=== PATIENT | male | born 1940 | race Caucasian/White ===

== ENCOUNTER → 2018-01-15 | Outpatient (CLI) | payer OTHER ==
[~2018-01-15] MED LIST: ADULT LOW DOSE81 MG; ADVAIR 100-501 EACH; APAP500 PO; ATORVASTATIN CA40 MG PO; CALCIUM 600 +1 EAC1 PO; CIPRO250 M1 PO; DILTIAZEM 24HR180 MG; FLAGYL500 MG PO; LISINOPRIL10 MG PO; LISINOPRIL5 MG; MULTIVITAMINS PO; NAPROSYN500 MG PO; NITROGLYCERIN0.4 MG SUBLING; NORCO 5-325 TA1 EACH PO; OMEGA-3100 MG; PERCOCET 10-321 EACH PO; PLAVIX 300 MG300 M1 PO; PLAVIX 75 MG TA75 M1 PO; PLAVIX 75 MG TA75 MG; SIMVASTATIN80 MG PO; TAMSULOSIN HCL0.4 M1 PER TUBE
--- NOTE | 2018-01-26 10:03 | ONC ---
[address] [address] RADIATION ONCOLOGY NOTE Name: MIKE BLANCO Room: [facility]#: [id number] Admission: 01/15/18 Attend Phys: Reno Quintero MD Discharge: Date of : 44 Report #: [id number] THIS REPORT FOR: //name// CC: Reno Ruth DATE OF SERVICE: 01/15/2018 REFERRING PHYSICIANS: Include Dr. Greg King and Dr. Greg Ruth. [facility] phone is [phone]. PRIMARY SITE AND HISTOPATHOLOGY: The patient received radiation therapy for a stage I adenocarcinoma of the prostate. The [place] score was 3+3 equals 6, PSA prior to treatment was 5.2. He completed radiation treatments on 01/15/2012. INTERVAL NOTE: The patient felt like he was emptying his bladder well. The patient rarely has nocturia. He usually wakes up around 7 a.m. to go the bathroom. MEDICATIONS: Include lisinopril, Plavix and a multivitamin and also Nitrostat as needed. SOCIAL HISTORY: The patient is retired. He is . Cigarettes: he does not smoke. REVIEW OF SYSTEMS: GENITOURINARY: He has rare nocturia and he empties his bladder well. GASTROINTESTINAL: He has 1 bowel movement a day and he feels like he has a good appetite. PHYSICAL EXAMINATION: VITAL SIGNS: The patient was 162.8 pounds on 01/15/2018 and 161.8 pounds on 01/11/2017. On 01/15/2018, blood pressure was 129/72, pulse 74, respirations 16, oxygen saturation 95%. BACK: Had no tenderness to palpation. HEART: Had a regular rate and rhythm without murmur. LUNGS: were clear to auscultation. RECTAL: The prostate was not enlarged. There were no palpable nodules. The patient was guaiac negative using [employer] Hemoccult cards from lot number [id number] that in 09/2019 using developer from lot [id number] that expires in 04/2020. LABORATORY DATA: My nurse got a verbal on the PSA from 12/2017 that was 0.4 [place] [address] RADIATION ONCOLOGY NOTE Name: MIKE BLANCO Room: [facility]#: [id number] Admission: 01/15/18 Attend Phys: Reno Quintero MD Discharge: Date of : 44 Report #: [id number] the previous PSA was 0.47 on 01/03/2017. ASSESSMENT AND PLAN: 1. History of prostate cancer- There is no evidence of prostate cancer at this time. The patient was given a requisition for a PSA in about 1 year and the patient was asked to schedule a follow up appointment to see me afterwards. 2. Hypertension- The patient takes lisinopril and that is managed by his referring physicians. 3. Cardiovascular disease- The patient takes Nitrostat and that is managed by his referring physicians. Thank you for allowing me to participate in the care of this patient. <ELECTRONICALLY SIGNED> By: Reno Quintero MD 01/26/18 1003 1018 1500Reno Quintero MD /nt
== END ==
LOC: M.RTH 04:28
DX: I11.9 Hypertensive heart disease without heart failure (principal); Z85.46 Personal history of malignant neoplasm of prostate

== ENCOUNTER → 2019-01-30 | Outpatient (CLI) | payer OTHER ==
--- NOTE | 2019-02-01 23:05 | ONC ---
[address] [address] RADIATION ONCOLOGY NOTE Name: MIKE BLANCO Room: [facility]#: [id number] Admission: 01/30/19 Attend Phys: Reno Quintero MD Discharge: Date of : 44 Report #: [id number] THIS REPORT FOR: //name// CC: Reno Ruth DATE OF SERVICE: 01/30/2019 RADIATION ONCOLOGY FOLLOWUP NOTE REFERRING PHYSICIANS: Dr. Greg King and also Dr. Greg Ruth. [facility] phone is [phone]. PRIMARY SITE AND HISTOPATHOLOGY: The patient received radiation therapy for a stage I adenocarcinoma of the prostate, the [place] score was 3+3 equals 6, the PSA prior to the treatment was 5.2 and he completed radiation treatments on 01/15/2012. INTERVAL NOTE: The patient felt like he was emptying his bladder well. The patient rarely has nocturia. He usually wakes up around 7 and he wakes up in the morning to go to the bathroom. MEDICATIONS: Include lisinopril, Plavix, Nitrostat as needed. SOCIAL HISTORY: The patient is retired. He is . Cigarettes, he does not smoke cigarettes. REVIEW OF SYSTEMS: GENITOURINARY: He rarely has nocturia. He empties his bladder well. GASTROINTESTINAL: He has about 1 bowel movement a day and he feels like he has a good appetite. PHYSICAL EXAMINATION: VITAL SIGNS: The patient was 163 pounds on 01/30/2019. He was 162.8 pounds on 01/15/2018. On 01/30/2019, blood pressure was 143/75, pulse 60, respirations 16, oxygen saturation 98%. BACK: Had no tenderness to palpation. HEART: Had a regular rate and rhythm without murmur. LUNGS: were clear to auscultation. RECTAL: The prostate was not enlarged. There were no palpable nodules and the patient was guaiac negative using [employer] Hemoccult cards with lot #[id number], expires in 09/2019, using [employer] Hemoccult developer from lot #[id number] that expires in 04/2020. [place] [address] RADIATION ONCOLOGY NOTE Name: MIKE BLANCO Room: [facility]#: [id number] Admission: 01/30/19 Attend Phys: Reno Quintero MD Discharge: Date of : 42 Report #: [id number] LABORATORY DATA: From 12/25/2018, PSA was 0.45. His PSA was 0.4 on 12/17/2017. ASSESSMENT AND PLAN: 1. History of prostate cancer- There is no evidence of prostate cancer at this time. Lab work was ordered in about a year and the patient was asked to schedule a followup appointment to see me afterwards. 2. Hypertension- The patient takes lisinopril and that is managed by his referring physician. 3. Cardiovascular disease- The patient takes Nitrostat and that is managed by his referring physicians. Thank you for allowing me to participate in the care of this patient. <ELECTRONICALLY SIGNED> By: Reno Quintero MD 02/01/19 2305 1122 [id number] Quintero MD /nt
== END ==
LOC: M.RTH 01-14 09:30
DX: Z08 Encounter for follow-up examination after completed treatment for malignant neoplasm (principal); I10 Essential (primary) hypertension; Z85.46 Personal history of malignant neoplasm of prostate; Z79.899 Other long term (current) drug therapy

== ENCOUNTER → 2020-01-29 | Outpatient (CLI) | payer OTHER ==
--- NOTE | ~2020-01-29 | ONC ---
[address] [address] RADIATION ONCOLOGY NOTE Name: MIKE BLANCO Room: [facility]#: [id number] Admission: 01/29/20 Attend Phys: Reno Quintero MD Discharge: Date of : 44 Report #: [id number] THIS REPORT FOR: //name// CC: Reno King DATE OF SERVICE: 01/29/2020 RADIATION ONCOLOGY FOLLOWUP NOTE [facility] phone is [phone]. REFERRING PHYSICIANS: Dr. Greg King and also Dr. Greg Ruth. PRIMARY SITE AND HISTOPATHOLOGY: The patient received radiation therapy for stage 1 adenocarcinoma of the prostate. Vanessa score was 3+3 equals 6 and the PSA prior to treatment was 5.2 and he completed radiation treatments on 01/15/2012. INTERVAL NOTE: The patient felt he was emptying his bladder well. He has nocturia about 1-2 times a night. He has one bowel movement a day. MEDICATIONS: Include lisinopril, Plavix, and Nitrostat as needed. SOCIAL HISTORY: The patient is retired. He is . Cigarettes, he does not smoke cigarettes. REVIEW OF SYSTEMS: GENITOURINARY: He rarely has nocturia. He empties his bladder well. GASTROINTESTINAL: He has about one bowel movement a day and he feels like he has a good appetite. PHYSICAL EXAMINATION: VITAL SIGNS: The patient was 160 pounds on 01/29/2020 and 163 pounds on 01/30/2019 and on 01/29/2020 blood pressures was 133/70, pulse 69, respirations 18, temperature 97.8 degrees Fahrenheit, oxygen saturation was 95%. BACK: Had no tenderness to palpation. HEART: Had a regular rate and rhythm without murmur. LUNGS: Clear to auscultation. RECTAL: The prostate was not enlarged. There were no palpable nodules and the patient was guaiac negative and that was using [employer] Hemoccult cards from lot #[id number] that expires in 03/2022, using [employer] Hemoccult developer from lot #[id number] that expires in 05/2022. Again, the prostate was not enlarged and there were no palpable nodules. LABORATORY DATA: The patient's PSA was 0.5 on ____ 01/26/2020 [place] [address] RADIATION ONCOLOGY NOTE Name: MIKE BLANCO Room: [facility]#: [id number] Admission: 01/29/20 Attend Phys: Reno Quintero MD Discharge: Date of : 42 Report #: [id number] 0.45 on 12/25/2018. ASSESSMENT AND PLAN: 1. History of prostate cancer. There is no evidence of prostate cancer at this time. PSA was ordered in about 1 year and the patient was asked to schedule a followup appointment to see me afterwards. 2. Hypertension. The patient takes lisinopril and that is managed by his referring physicians. 3. Cardiovascular disease. The patient takes Nitrostat and that is managed by his referring physicians. Thank you for allowing me to participate in the care of this patient. By: [id number] Quintero MD /nt
== END ==
LOC: M.RTH 09:45
PROVIDERS: ATTEND Radiology Radiation Oncology
DX: I10 Essential (primary) hypertension (principal); I25.10 Atherosclerotic heart disease of native coronary artery without angina pectoris; Z85.46 Personal history of malignant neoplasm of prostate

== ENCOUNTER 2020-03-07 15:00 | Observation (INO) | payer OTHER ==
[~2020-03-07] VITALS: Ht 167.6 cm; Wt 72.7 kg
--- NOTE | ~2020-03-07 | EMS ---
[place] [address] EMS Patient Care Report Name: MIKE BLANCO [id number] Admission: 03/07/20 Attend Phys: Discharge: Date of : 42 Report #: [id number] THIS REPORT FOR: //name// Report Transmitted: 03/07/2020 14:57 EMS Care Summary [facility]ident [id number] @ 03/07/2020 13:49 Incident Location [address] [place] [address] Patient SANDIE BLANCO Male, 79 Years 1940 Patient Address [address] [place] [address] Patient History Hypertension (HTN),Cardiac - Stent, Patient Allergies No known allergies, Patient Medications Lisinopril, Nitroglycerin, Aspirin, Atorvastatin, Allopurinol, Clopidogrel, Chief Complaint Steady Back Pain Disposition Transported No Lights/[place] [facility] Reason Chest Pain (Non-Traumatic) Transported To [facility] Narrative Dispatched: Med 1 was toned for a male with a possible heart attack. Med 1 responded emergent; lights and sirens. Chief Complaint/Condition: The patient was found seated in a chair with no [facility] [address] [place] [address] EMS Patient Care Report Name: MIKE BLANCO [facility] [id number] Admission: 03/07/20 Attend Phys: Discharge: Date of : 42 Report #: [id number] apparent distress. He denied any chest pain but reported a ache/pain in between his shoulder blades that resembled his last heart attack. History of Present Illness/Injury: The patient stated that the pain woke him up between 3am and 4am this morning. He took 3 nitro pills and called 911. The crew arrived and performed an assessment. The patient refused transport at that time and called his physician for an appointment. The pain returned and so he took more nitro tablets and aspirin. 911 was called due to the persistent nature of the pain. The patient reported that the pain had dissipated by the time EMS arrived and he had no complaints. He still wanted to be seen by a physician. Assessment: The patient was a male in his 70's, A/Ox4, GCS 15. Airway patent, breathing clear, equal, and regular. CMS present with strong radial pulses. Skin pink, warm, and dry. See section for further. Reason for Ambulance: The patient has a cardiac history and was experiencing similar discomfort like his last heart attack. He requested transport to [facility] for further assessment. Treatment: EKG/12 lead showing sinus rhythm. IV therapy performed and 20ga placed in left AC. See section for further. Summary: Med 1 arrived on scene and found the patient sitting in a chair with no apparent distress. Assessment performed and vitals obtained/ EKG. Findings conveyed to patient. He requested transport to[facility] for further assessment. Pt assisted to the stretcher and secured. His status monitored throughout transport. He reported no pain or complaints while in EMS contact. Report called to facility with no further orders. The patient was delivered to ED 16 upon arrival and he self transferred to bed. Report given to staff. Signatures obtained and paperwork gathered. Med 1 cleared the facility and returned. Initial Vitals @14:10P: 62,R: 16,BP: 92/58,GCS: 15,Revised Trauma: 12, @14:32P: 60,R: 16,BP: 105/73,GCS: 15,SpO2: 96,Revised Trauma: 12, @14:47P: 57,R: 18,BP: 104/71,GCS: 15,SpO2: 97,Revised Trauma: 12, @14:06P: 65,R: 16,GCS: 15, @14:22P: 63,R: 18,BP: 102/69,GCS: 15,SpO2: 98,Revised Trauma: 12, @14:27P: 59,R: 18,GCS: 15,SpO2: 95, @14:08P: 62,R: 18,GCS: 15, Assessments @14:30MENTAL:Person Oriented,Time Oriented,Event Oriented,Place Oriented,SKIN:HEENT:LUNG SOUNDS:ABDOMEN:PELVIS//GI:EXTREMITIES:PULSE:Radial: 2+ Normal,NEURO:@14:01MENTAL:Time Oriented,Place Oriented,Person Oriented,[place] [address] EMS Patient Care Report Name: MIKE BLANCO [id number] Admission: 03/07/20 Attend Phys: Discharge: Date of : 42 Report #: [id number] Oriented,SKIN:HEENT:LUNG SOUNDS:ABDOMEN:PELVIS//GI:EXTREMITIES:PULSE:Radial: 2+ Normal,NEURO: Impression Pain (Non-Traumatic) Procedures @PTAAspirin - 160 Milligrams (mg) - OralResponse: Improved@14:34Saline Lock 10cc (20 ga) Site: Antecubital-LeftResponse: UnchangedSucceeded@14:01ALS AssessmentResponse: UnchangedSucceeded@14:0612-Lead ECGResponse: UnchangedSucceeded@14:0812-Lead ECGResponse: UnchangedSucceeded Timeline [employer] REPRESENTATIVE,Aspirin - 160 Milligrams (mg) - Oral,Response: Improved 13:47,Call Received 13:49,Dispatched 13:49,En Route 14:00,On Scene 14:01,At Patient 14:01,ALS Assessment,Response: UnchangedSucceeded, 14:06,12-Lead ECG,Response: UnchangedSucceeded, 14:06,BP: / M,PULSE: 65,RR: 16 R,SPO2: Ox,ETCO2: ,BG: ,PAIN: ,GCS: 15, 14:08,12-Lead ECG,Response: UnchangedSucceeded, 14:08,BP: / M,PULSE: 62,RR: 18 R,SPO2: Ox,ETCO2: ,BG: ,PAIN: ,GCS: 15, 14:10,BP: 92/58 M,PULSE: 62,RR: 16 R,SPO2: Ox,ETCO2: ,BG: ,PAIN: ,GCS: 15, 14:17,Depart Scene 14:22,BP: 102/69 M,PULSE: 63,RR: 18 R,SPO2: 98 Ox,ETCO2: ,BG: ,PAIN: ,GCS: 15, 14:27,BP: / M,PULSE: 59,RR: 18 R,SPO2: 95 Ox,ETCO2: ,BG: ,PAIN: ,GCS: 15, 14:32,BP: 105/73 M,PULSE: 60,RR: 16 R,SPO2: 96 Ox,ETCO2: ,BG: ,PAIN: ,GCS: 15, 14:34,Saline Lock 10cc 20 ga Site: Antecubital-Left,Response: UnchangedSucceeded, 14:47,BP: 104/71 M,PULSE: 57,RR: 18 R,SPO2: 97 Ox,ETCO2: ,BG: ,PAIN: ,GCS: 15, 14:57,At Destination 15:38,Call Closed Disclaimer v1.1 Copyright 2020 [employer] This EMS Care Summary contains data elements from the applicable legal record (which may be displayed differently). It is designed to provide pertinent information for the following purposes: continuity of care, clinical quality, and state data reporting. The complete legal record is available to ED staff and administrators of the receiving hospital in [employer] Patient Tracker. All data is provided "as is."
[~2020-03-07 15:00] MED LIST changes: -APAP500 PO; +TYLENOL EXTRA500 MG PO
[2020-03-07 15:01] VITALS: BP 125/62
[2020-03-07 15:27] LABS: ABSOLUTE LYMPHOCYTES 1.4 thou/uL (0.8-5.3); ABSOLUTE MONOCYTES 0.6 thou/uL (0.0-1.2); ABSOLUTE NEUTROPHILS 1.3 thou/uL (1.6-8.1); BASOPHILS 1.1 %; EOSINOPHILS 1.4 %; HEMATOCRIT 33.9 % (42.0-52.0); HEMOGLOBIN 11.9 gm/dL (14.0-18.0); LYMPHOCYTES 40.8 %; MCH 30.5 pg (26.0-34.0); MCHC 35.1 g/dL (28.0-37.0); MCV 86.9 fL (80.0-100.0); MONOCYTES 18.4 %; MPV 7.8 fl. (7.2-11.1); NUCLEATED RBCS 0 /100WBC; PLATELET COUNT* 155 thou/uL (150-400); POLYS 38.3 %; RDW-CV 14.6 % (10.5-14.5); WBC 3.5 thou/uL (4.0-11.0)
[2020-03-07 15:41] LABS: CALCIUM 7.7 mg/dL (8.5-10.1); POTASSIUM 4.5 mmol/L (3.5-5.1)
[2020-03-07 15:50] LABS: ALBUMIN 3.3 g/dL (3.4-5.0); MAGNESIUM 1.7 mg/dL (1.8-2.4); TOTAL BILIRUBIN 0.2 mg/dL (<0.1-1.0); TOTAL PROTEIN 6.4 g/dL (6.4-8.2)
[2020-03-07 20:35] VITALS: BP 141/72
[2020-03-07 21:00] VITALS: BP 143/77
[2020-03-08] VITALS (11 sets, daily range): BP systolic 94–134; BP diastolic 45–72
[2020-03-08 05:41] LABS: ABSOLUTE EOSINOPHILS 0.1 thou/uL (0.0-0.7); ABSOLUTE LYMPHOCYTES 1.4 thou/uL (0.8-5.3); ABSOLUTE MONOCYTES 0.6 thou/uL (0.0-1.2); ABSOLUTE NEUTROPHILS 1.6 thou/uL (1.6-8.1); BASOPHILS 0.4 %; EOSINOPHILS 2.4 %; HEMATOCRIT 33.9 % (42.0-52.0); HEMOGLOBIN 11.8 gm/dL (14.0-18.0); LYMPHOCYTES 37.6 %; MCH 30.2 pg (26.0-34.0); MCHC 34.8 g/dL (28.0-37.0); MCV 86.9 fL (80.0-100.0); MONOCYTES 15.6 %; MPV 7.8 fl. (7.2-11.1); NUCLEATED RBCS 0 /100WBC; PLATELET COUNT* 139 thou/uL (150-400); RDW-CV 14.6 % (10.5-14.5); WBC 3.7 thou/uL (4.0-11.0)
[2020-03-08 05:50] LABS: CALCIUM 7.5 mg/dL (8.5-10.1); CREATININE 0.9 mg/dL (0.6-1.3); POTASSIUM 3.9 mmol/L (3.5-5.1)
[2020-03-08 09:40] LABS: CHOLESTEROL 102 mg/dL (<200); HDL CHOLESTEROL 28 mg/dL (>40); LDL CHOLESTEROL 55 mg/dL (<100); SERUM ASSESSMENT Clear; TC:HDL 3.6 Ratio (Not establshd); TRIGLYCERIDE 96 mg/dL (<150); VLDL 19 mg/dL (<40)
--- NOTE | 2020-03-08 16:23 | EKG ---
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: SADE : 1940 Requested By: Mohinder Pinon Order Number: [id number] MD: Andrew Felix Measurements Intervals [place] Rate: 53 P: 65 LA: 163 QRS: 78 QRSD: 109 T: 68 QT: 437 QTc: 411 Interpretive Statements Sinus rhythm Borderline T wave abnormalities Compared to ECG 12/06/2016 16:05:12 T-wave abnormality now present Myocardial infarct finding no longer present Electronically Signed On 03-08-2020 16:22:56 CDT by Andrew Felix [email or web address] <ELECTRONICALLY SIGNED> By: Andrew Felix MD, [facility] 03/08/20 1622 1506 1506 Andrew Felix MD, [facility] /EPI
--- NOTE | 2020-03-08 18:08 | CON ---
[address] [address] CONSULTATION Name: MIKE BLANCO Room: [address] [facility]#: [id number] Admission: 03/07/20 Attend Phys: Kings Lopez MD Discharge: Date of : 44 Report #: [id number] THIS REPORT FOR: //name// cc: Zita Bravo MD, Jayne MD ~ THIS REPORT FOR: //name// CC: Kings Ruth MD [facility] Zita Bravo DATE OF SERVICE: 03/08/2020 INDICATION: Back pain consistent with his prior angina. HISTORY OF PRESENT ILLNESS: The patient is a very pleasant 79-year-old gentleman with a history of coronary artery bypass surgery in 1997. In 2009, he had stents placed to a vein graft. In 2013, catheterization showed occlusion of one of his vein grafts. He did not have intervention at that time. By noninvasive studies, his ejection fraction has been in the neighborhood of 50%. Yesterday afternoon, he awoke from a nap with chest discomfort radiating to the neck consistent with his prior anginal episodes. He took nitroglycerin with relief on 3 separate occasions. After the pain persisted, he presented to the hospital for further evaluation. EKG shows sinus bradycardia with ST segment depression that is subtle and T-wave flattening. Enzymes thus far have been unremarkable. He is without other cardiac complaints at this time. CARDIAC RISK FACTORS: Include hypertension and dyslipidemia for which he takes medication. PAST MEDICAL HISTORY: 1. Coronary artery disease as outlined above. 2. History of colitis with GI bleeding remotely. 3. TIA. PAST SURGICAL HISTORY: Coronary artery bypass grafting as outlined above. FAMILY HISTORY: Positive for heart disease. SOCIAL HISTORY: The patient is a lifelong nonsmoker. He does not drink alcohol. REVIEW OF SYSTEMS: As per HPI. In addition, he has dyspnea on exertion, but no shortness of breath at rest. Otherwise, unremarkable. PHYSICAL EXAMINATION: [place] [address] CONSULTATION Name: MIKE BLANCO Room: [address]#: [id number] Admission: 03/07/20 Attend Phys: Kings Lopez MD Discharge: Date of : 42 Report #: [id number] VITAL SIGNS: Stable. Blood pressure 128/72, pulse is 57 and regular. GENERAL: This is a pleasant gentleman in no distress. Mood and affect appropriate. HEENT: Extraocular muscles are intact. Mucous membranes are moist. NECK: Shows no jugular venous distention. There are no carotid bruits. CHEST: Reveals clear lung mobley. CARDIOVASCULAR: Reveals a regular rhythm without gallop or murmur. ABDOMEN: Reveals normal bowel sounds. The abdomen is soft and nontender. EXTREMITIES: Shows no edema. SKIN: Dry. IMPRESSION AND RECOMMENDATIONS: 1. Symptoms consistent with unstable angina. We will proceed with coronary angiography and possible intervention pending those results. 2. Coronary artery disease. Continue risk factor modification, daily aspirin. 3. Hypertension. Blood pressure adequately controlled on current medication. 4. Lipid status unknown. We will check fasting lipid profile and continue statin agent. <ELECTRONICALLY SIGNED> By: Costa Gottlieb MD, FACC 03/08/20 1808 0907 [id number] Gottlieb MD, FACC /nt
[2020-03-09 00:30] VITALS: BP 93/53
[2020-03-09 04:00] VITALS: BP 98/52
[2020-03-09 04:58] LABS: HEMATOCRIT 29.4 % (42.0-52.0); HEMOGLOBIN 10.2 gm/dL (14.0-18.0); MCHC 34.7 g/dL (28.0-37.0); MCV 86.6 fL (80.0-100.0); MPV 7.7 fl. (7.2-11.1); RBC 3.4 mil/uL (4.50-6.00); RDW-CV 14.4 % (10.5-14.5); WBC 3.5 thou/uL (4.0-11.0)
[2020-03-09 05:28] LABS: ALBUMIN 2.8 g/dL (3.4-5.0); CALCIUM 6.7 mg/dL (8.5-10.1); CREATININE 1.1 mg/dL (0.6-1.3); POTASSIUM 3.7 mmol/L (3.5-5.1); TOTAL BILIRUBIN 0.2 mg/dL (<0.1-1.0); TOTAL PROTEIN 5.2 g/dL (6.4-8.2)
[2020-03-09] MEDS ORDERED: ASPIR 8181 MG PO (08:58)
[2020-03-09] MEDS ORDERED: EFFIENT10 MG PO (08:58)
[2020-03-09 10:00] VITALS: BP 98/52
--- NOTE | 2020-03-09 10:01 | CARD ---
[address] [address] CARDIAC CATH REPORT Name: MIKE BLANCO Room: [address] M.RYecenia#: [id number] Admission: 03/07/20 Attend Phys: Kings Lopez MD Discharge: Date of : 44 Report #: [id number] THIS REPORT FOR: //name// cc: Zita Bravo MD, Jayne MD ~ APPROVED REPORT Study performed: 03/08/2020 11:25:32 Patient Details Patient Status: In-Patient Room #: The patient is a 79 year-old male Event Personnel Costa Gottlieb Junior Systems Analyst,, Lou Turcios RN RN, Yifan HaysIS Scrub, Shanna Bridges RTR Monitor, Andrew Felix [place], Brielle Kim RTR Monitor, Inés Howard Monitor Procedures Performed Art Access - R femoral artery, Left Heart Cath Coronaries, Bypass Grafts LHCCORCABG, PTCA Single Vessel DIAG , PCISINGLE KARENA Place w/wo Plasty Single LAD , Hemostasis w/ Angioseal Indication Unstable angina Risk Factors Hypercholesterolemia, Hypertension Previous Procedures/Diagnoses Previous CABG Admission/Lab Medications/Medications given during procedure Angiomax IV 11 ml, Angiomax Drip IV 25.56 ml per hr, Effient PO 60 mg Procedure Narrative The patient was brought electively to the Cardiac Catheterization Laboratory and was prepped and draped in a sterile manner. The right femoral was infiltrated with 2% Lidocaine subcutaneous anesthesia. A 6F/10cm [place] sheath was inserted into the right femoral artery. Coronary angiography was performed using coronary diagnostic catheters. The right coronary system was accessed and visualized with a 6F 3DRC catheter. The left [place] [address] CARDIAC CATH REPORT Name: MIKE BLANCO Room: [address] MYeceniaR.#: [id number] Admission: 03/07/20 Attend Phys: Kings Lopez MD Discharge: Date of : 44 Report #: [id number] visualized with a 6F JL4 catheter. The left ventricle was accessed and visualized with a 6F Pigtail catheter. Left ventricular/Aortic Valve gradient assessed via catheter pullback. Left ventriculogram was performed in POWERS projection. Pre-demployment femoral angiogram was performed . Closure device was deployed with a 6 Fr Angioseal STS. The patient tolerated the procedure well and there were no complications associated with the procedure. There was no hematoma. Multiple sheath exchanges in the right femoral artery. (6F/23cm Brite tip, 6F/35 Brite tip, 6F/55cm Brite tip, 6F/45 Jared, 6F/12 Ultimum) The 6F JR4 and 6F MPA2 catheters were used to attempt visualization of the saphenous vein grafts. The GARCIA was accessed and visualized with a 6F JR4 catheter. Intraoperative Conscious Sedation Sedation start time: 12:14 Case end Time: 15:09 Fentanyl 150 mcg Versed 5 mg Fluoro Time: 75.8 minutes Dose: DAP [id number] cGycm2 6374 mGy Contrast Type and Amount: Visipaque 640 ml [place] Artery Percent Stenosis 1. Widely patent GARCIA graft to the LAD with good distal filling 2. Total occlusion of the previously constructed saphenous vein graft to the right coronary artery Diagnostic Cath Left Main 40% ostial narrowing LAD 90% heavily calcified proximal and proximalmid vessel stenoses with 80% irregular mid vessel stenosis and reciprocal filling of the distal LAD reflecting a patent GARCIA graft; there was 80% stenosis of the proximal portion of a prominent first diagonal branch Circumflex 100% proximal occlusion Right Coronary 100% proximal occlusion Hemodynamics The aortic pressure is 145/73 mmHg with a mean of 93 mmHg. The left ventricular pressure is 146/4 mmHg with a mean of mmHg. The left ventricular end diastolic pressure is 26 mmHg. PCI Technique Lesion Anticoagulation was achieved with Angiomax. Patient was preloaded with Angiomax IV 11 ml. [place]erc[place] [address] CARDIAC CATH REPORT Name: MIKE BLANCO Room: [address] M.Yecenia#: [id number] Admission: 03/07/20 Attend Phys: Kings Lopez MD Discharge: Date of : 44 Report #: [id number] performed on the proximal left anterior descending artery segment. The lesion stenosis prior to intervention was 90% with ANGIE 3 flow. A 6FR LAUNCHER EBU 4.0 Guide Catheter was used to engage the lm ostium. A BMW 190cm Interventional Guidewire was used to cross the lesion. BALLOON DILATION A Balloon catheter Mini Trek OTW 1.2 X 8 was inserted and inflated up to 17.00atm for 16seconds. Additional Inflation: 20.00atm for 12seconds. Additional Inflation: 22.00atm for 13seconds. The BMW 300cm interventional wire used with OTW Mini Trek balloon. Multiple OTW interventional wires attempted/used: BMW 300cm, Prowater Flex 300cm, Fielder XT 300cm. A balloon catheter Mini Trek RX 1.5 x 8 was inserted and inflated up to 18 kentrell for 12 seconds. Additional inflations: 20 kentrell for 11 seconds; 20 kentrell for 9 seconds. STENT DEPLOYMENT A drug-eluting stent Enterprise RX Stent 2.5X12mm was inserted and inflated up to 14atm for 10seconds. Additional Inflation: 16.00atm for 11seconds. Final angiography reveals 0 % stenosis with ANGIE 3 flow. COMMENTS The PCI to the LAD and diagonal was technically complex by virtue of the severe calcification and diffuse disease throughout the LAD and first diagonal segment. This required complex wiring and extensive lesion preparation prior to stent deployment. PCI Technique Lesion 2 Patient was preloaded with Angiomax IV 11 ml. Percutaneous coronary intervention was performed on the mid left anterior descending artery segment. The lesion stenosis prior to intervention was 90% with ANGIE 3 flow. A 6FR LAUNCHER EBU 4.0 Guide Catheter was used to engage the lm ostium. A BMW 190cm Interventional Guidewire was used to cross the lesion. Balloon Dilation A Balloon catheter Trek RX 2.25 X 8 was inserted and inflated up to 17atm for 13seconds. Additional Inflation: 20atm for 10seconds. Additional Inflation: 20atm for 8seconds. A balloon catheter Trek RX 2.5 x 8 was inserted and inflated up to 18 kentrell for 14 seconds. Additional inflations: 20 kentrell for 11 seconds; 20 kentrell for 8 seconds. A balloon catheter NC Euphora 2.75 x 12 was inserted and inflated up to 24 kentrell for 20 seconds. Additional inflation: 16 kentrell for 11 [place] [address] CARDIAC CATH REPORT Name: MIKE BLANCO Room: [address] Ezra.#: [id number] Admission: 03/07/20 Attend Phys: Kings Lopez MD Discharge: Date of : 44 Report #: [id number] seconds. Stent Deployment A drug-eluting stent Enterprise RX Stent 2.5X8mm was inserted and inflated up to 16atm for 14seconds. Additional Inflation: 22atm for 13seconds. Final angiography reveals 10 % stenosis with ANGIE 3 flow. PCI Technique Lesion 3 Percutaneous Coronary Intervention was performed on the first diagonal branch segment. Patient was preloaded with Angiomax IV 11 ml. The lesion stenosis prior to intervention was 80% with ANGIE 3 flow. A 6FR LAUNCHER EBU 4.0 Guide Catheter was used to engage the lm ostium. A BMW 190cm Interventional Guidewire was used to cross the lesion. Balloon Dilation A Balloon catheter Mini Trek RX 1.5 X 12 was inserted and inflated up to 18atm for 15seconds. Additional Inflation: 18atm for 8seconds. Additional Inflation: 20atm for 12seconds. Final angiography reveals 50 % stenosis with ANGIE 3 flow. Conclusion 1. Severe coronary artery disease characterized by the following: A 90% heavily calcified proximal and proximalmid LAD stenosis with 80% first diagonal stenosis and 80% irregular stenosis of the mid LAD with reciprocal flow distally reflecting a patent GARCIA graft B 100% proximal circumflex occlusion C 100% proximal right coronary occlusion 2. Graft study characterized by the following: A widely patent GARCIA graft to the LAD B total occlusion of the previously constructed saphenous vein graft to the right coronary artery 3. Moderately severe elevation of left ventricular end-diastolic pressure at rest [address] [place] [address] CARDIAC CATH REPORT Name: MIKE BLANCO Room: [address]#: [id number] Admission: 03/07/20 Attend Phys: Kings Lopez MD Discharge: Date of : 44 Report #: [id number] 4. Successful PCI with deployment of sequential drug-eluting stents at the sites of 90% heavily calcified proximal and proximalmid LAD stenosis with 0 and 10% residual narrowings and ANGIE-3 flow to the distal vessel 5. Successful PTCA at the site of 80% first diagonal stenosis with 50% residual narrowing and ANGIE-3 flow to the distal circulation Recommendations Cardiac Risk Reduction Program Aggressive Medical Therapy Medications Administered Aspirin (any) Prasugrel Diagnostic Cath Approved by: Costa Gottlieb MD Date/Time: 03/09/2020 09:58:56 <ELECTRONICALLY SIGNED> By: Andrew Felix MD, [facility] 03/09/20 1001 00 1001Jogiselle Felix MD, FACC /INF
--- NOTE | 2020-03-09 15:22 | EKG ---
[place] [address] ELECTROCARDIOGRAM REPORT Name: MIKE BLANCO Room: [address]#: [id number] Admission: 03/07/20 Attend Phys: Kings Lopez, Discharge: 03/09/20 Date of : 44 Date of Service: 03/09/20 0810 Report #: [id number] THIS REPORT FOR: //name// 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1940 Requested By: Costa Gottlieb Order Number: [id number] Reading MD: Andrew Felix Measurements Intervals [place] Rate: 63 P: 60 VT: 169 QRS: 81 QRSD: 110 T: -87 QT: 500 QTc: 512 Interpretive Statements Sinus rhythm Multiple ventricular premature complexes Borderline right axis deviation Abnormal R-wave progression, early transition Borderline T abnormalities, inferior leads Prolonged QT interval Compared to ECG 03/07/2020 15:06:46 Ventricular premature complex(es) now present Prolonged QT interval now present T-wave abnormality still present Electronically Signed On 03-09-2020 15:22:37 CDT by Andrew Felix [email or web address] <ELECTRONICALLY SIGNED> By: Andrew Felix MD, [facility] 03/09/20 1522 9 9 Andrew Felix MD, [facility] /EPI
== END 2020-03-09 13:20 | disposition home or self-care (01) ==
LOC: M.ERS 15:00 → M.2W 17:09 → M.TBA-ER 17:09 → M.2W 20:46
PROVIDERS: Emergency Medicine Emergency Medical Services; Internal Medicine Cardiovascular Disease; ADMIT Internal Medicine; ATTEND Internal Medicine
DX: I25.110 Atherosclerotic heart disease of native coronary artery with unstable angina pectoris (principal); E78.5 Hyperlipidemia, unspecified; G47.30 Sleep apnea, unspecified; N39.0 Urinary tract infection, site not specified; I10 Essential (primary) hypertension; E78.00 Pure hypercholesterolemia, unspecified; I25.2 Old myocardial infarction; Z86.73 Personal history of transient ischemic attack (TIA), and cerebral infarction without residual deficits; Z79.899 Other long term (current) drug therapy; Z20.828 Contact with and (suspected) exposure to other viral communicable diseases; Z95.1 Presence of aortocoronary bypass graft; Z95.818 Presence of other cardiac implants and grafts